=== PATIENT | female | born 1985 | race African-American/Black ===

== ENCOUNTER 2020-09-17 11:31 | Emergency (ER) | payer BC ==
[~2020-09-17] VITALS: Ht 160 cm; Wt 54.4 kg
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
[2020-09-17] MEDS ORDERED: IBUPROFEN 600 MG TABLET PO ONE (13:00)
[2020-09-17] MEDS ORDERED: IBUPROFEN 600 MG TABLET ONE (13:03)
[2020-09-17 13:44] VITALS: BP 113/71
== END 2020-09-17 13:45 | disposition home or self-care (01) ==
LOC: ER 11:34
DX: S20.219A Contusion of unspecified front wall of thorax, initial encounter (principal); S80.11XA Contusion of right lower leg, initial encounter; M25.561 Pain in right knee; V32.5XXA Driver of three-wheeled motor vehicle injured in collision with two- or three-wheeled motor vehicle in traffic accident, initial encounter; Y93.89 Activity, other specified; Y92.413 State road as the place of occurrence of the external cause; Y99.8 Other external cause status
CPT/HCPCS: 71045-TC; 73564-TC; 73590-TC

== ENCOUNTER 2023-09-17 16:13 | Emergency (ER) | payer BC, OTHER ==
[~2023-09-17] VITALS: Ht 160 cm; Wt 59.9 kg
[2023-09-17 17:12] LABS: BASOPHILS % (AUTO) 0.6 % (0.0-2.0); EOSINOPHILS # (AUTO) 0.1 K/uL (0.0-0.7); EOSINOPHILS % (AUTO) 0.9 % (0.0-6.0); HEMATOCRIT 41 % (33-45); HEMOGLOBIN 12.7 g/dL (11.5-14.8); LYMPHOCYTES # (AUTO) 2.3 K/uL (0.8-4.8); LYMPHOCYTES % (AUTO) 35.1 % (20.0-44.0); MEAN CORPUSCULAR HEMOGLOBIN 24 PG (26.0-33.0); MEAN CORPUSCULAR HGB CONC 31 g/dl (31.0-36.0); MEAN CORPUSCULAR VOLUME 77 fL (82-100); MONOCYTES # (AUTO) 0.3 K/uL (0.1-1.30); MONOCYTES % (AUTO) 4.7 % (2.0-12.0); NEUTROPHILS # (AUTO) 3.8 K/uL (1.8-8.9); NEUTROPHILS % (AUTO) 58.7 % (43.0-81.0); PLATELET COUNT (AUTO) 263 K/uL (150-450); RED BLOOD CELL COUNT(AUTO) 5.26 MIL/uL (4.0-5.2); RED CELL DISTRIBUTION WIDTH 19.1 % (11.5-15.0); WHITE BLOOD COUNT (AUTO) 6.4 K/uL (4.3-11.0)
[2023-09-17 17:37] LABS: APPEARANCE,URINE CLEAR (CLEAR); BILIRUBIN,URINE NEGATIVE (NEGATIVE); BLOOD, URINE NEGATIVE Ery/uL (NEGATIVE); COLOR,URINE YELLOW (YELLOW); KETONES,URINE NEGATIVE (NEGATIVE); LEUKOCYTE ESTERASE ,URINE NEGATIVE (NEGATIVE); NITRITE, URINE POSITIVE (NEGATIVE); PH,URINE 5.5 (5.0-8.0); PROTEIN,URINE NEGATIVE (NEGATIVE); UGLUCOSE NEGATIVE (NEGATIVE); UROBILINOGEN,URINE 0.2 EU/dL (0.2)
[2023-09-17 17:38] LABS: PREGNANCY TEST URINE QUAL NEGATIVE (NEGATIVE)
[2023-09-17 17:38] LABS: CALCIUM, SERUM 9.7 mg/dL (8.5-10.1); CARBON DIOXIDE 22 mmol/L (21-32); CHLORIDE 104 mmol/L (98-107); CREATININE 0.6 mg/dL (0.6-1.3); GLUCOSE 110 mg/dL (74-106); POTASSIUM 3.3 mmol/L (3.5-5.1); SODIUM SERUM 139 mmol/L (136-145); UREA NITROGEN, BLOOD 8 mg/dL (7-18)
[2023-09-17 17:41] LABS: INR 1.08 (0.91-1.10); PARTIAL THROMBOPLASTIN TIME 27.4 SEC (24.3-34.3); PROTHROMBIN TIME 11.4 SECS (9.2-11.1)
[2023-09-17 17:46] LABS: ALANINE AMINOTRANSFERASE 17 U/L (12-78); ALKALINE PHOSPHATASE 38 U/L (46-116); ASPARTATE AMINOTRANSFERASE 11 U/L (15-37); BILIRUBIN,DIRECT 0.1 mg/dL (0.0-0.2); BILIRUBIN,TOTAL 0.5 mg/dL (0.2-1.0); TOTAL PROTEIN, SERUM 9.4 g/dL (6.4-8.2)
[2023-09-17] MEDS ORDERED: IV NS 0.9% 1,000 ML BAG IV ONE (18:00)
[2023-09-17 18:03] LABS: ADD URINE CULTURE YES; BACTERIA,URINE 1+ /HPF (None Seen); MUCUS,URINE Moderate /LPF (None Seen); RBC,URINE 0-2 /HPF (0-2); WBC,URINE 0-2 /HPF (0-3)
[2023-09-17] MEDS ORDERED: CEPH500C2 PO (18:38)
[2023-09-17 18:40] LABS: PREGNANCY TEST URINE QUAL NEGATIVE (NEGATIVE)
[2023-09-17 19:37] VITALS: BP 110/75; TEMP 98.2; O2SAT 99
== END 2023-09-17 19:37 | disposition home or self-care (01) ==
LOC: ER 16:24
DX: N39.0 Urinary tract infection, site not specified (principal); R55 Syncope and collapse; Z79.899 Other long term (current) drug therapy
CPT/HCPCS: 99285; 96360; 71045; 93005; 85025; 80048; 87086; 80076; 81001; 36415; 84484; 85730; 86850; 84703 ×2; J7030

== ENCOUNTER 2023-12-06 07:16 | Emergency (ER) | payer OTHER ==
[~2023-12-06] VITALS: Ht 157.5 cm; Wt 59.4 kg
[~2023-12-06 07:16] MED LIST: CEPH500C2 PO
[2023-12-06 07:22] VITALS: TEMP 98.5
[2023-12-06 08:00] VITALS: BP 132/71; O2SAT 100
== END 2023-12-06 08:03 | disposition home or self-care (01) ==
LOC: ER 07:23
DX: L76.34 Postprocedural seroma of skin and subcutaneous tissue following other procedure (principal); Z98.890 Other specified postprocedural states

== ENCOUNTER 2024-02-23 13:32 | Emergency (ER) | payer OTHER ==
[~2024-02-23] VITALS: Ht 157.5 cm; Wt 59.9 kg
[2024-02-23] MEDS ORDERED: ACETAMINOPHEN ES 500 MG TABLET ONE (14:23)
[2024-02-23] MEDS ORDERED: FAMOTIDINE (20 MG) 20 MG TABLET ONE ×3 (14:23→14:26)
[2024-02-23] MEDS: FAMOTIDINE (20 MG) 20 MG TABLET PO ONE (14:31)
[2024-02-23] MEDS: ACETAMINOPHEN ES 500 MG TABLET PO ONE (14:33)
[2024-02-23 14:45] LABS: BASOPHILS # (AUTO) 0.1 K/uL (0.0-0.2); BASOPHILS % (AUTO) 0.8 % (0.0-2.0); EOSINOPHILS # (AUTO) 0.9 K/uL (0.0-0.7); HEMATOCRIT 30 % (33-45); HEMOGLOBIN 9.4 g/dL (11.5-14.8); LYMPHOCYTES # (AUTO) 2.3 K/uL (0.8-4.8); LYMPHOCYTES % (AUTO) 32.9 % (20.0-44.0); MEAN CORPUSCULAR HEMOGLOBIN 21 PG (26.0-33.0); MEAN CORPUSCULAR HGB CONC 31 g/dl (31.0-36.0); MEAN CORPUSCULAR VOLUME 68 fL (82-100); MONOCYTES # (AUTO) 0.2 K/uL (0.1-1.30); MONOCYTES % (AUTO) 3.5 % (2.0-12.0); NEUTROPHILS # (AUTO) 3.6 K/uL (1.8-8.9); NEUTROPHILS % (AUTO) 50.8 % (43.0-81.0); PLATELET COUNT (AUTO) 364 K/uL (150-450); RED BLOOD CELL COUNT(AUTO) 4.44 MIL/uL (4.0-5.2); RED CELL DISTRIBUTION WIDTH 21.8 % (11.5-15.0); WHITE BLOOD COUNT (AUTO) 7.1 K/uL (4.3-11.0)
[2024-02-23 15:03] LABS: CALCIUM, SERUM 9.1 mg/dL (8.5-10.1); CREATININE 0.5 mg/dL (0.6-1.3); POTASSIUM 3.4 mmol/L (3.5-5.1)
[2024-02-23 15:10] LABS: ALBUMIN 3.9 g/dL (3.4-5.0); BILIRUBIN,DIRECT 0.1 mg/dL (0.0-0.2); BILIRUBIN,TOTAL 0.2 mg/dL (0.2-1.0); TOTAL PROTEIN, SERUM 7.4 g/dL (6.4-8.2)
[2024-02-23] MEDS ORDERED: OMEP20CA15 PO (15:25)
[2024-02-23 15:35] VITALS: BP 118/66; TEMP 98; O2SAT 99
[2024-02-23 18:58] LABS: EOSINOPHILS % (MANUAL) 5 % (0-4); LYMPHOCYTES % (MANUAL) 38 % (16-48); MONOCYTES % (MANUAL) 2 % (0-11.0); NEUTROPHILS % (MANUAL) 55 (42-76)
[2024-02-23 19:01] LABS: ANISOCYTOSIS 2+; PLATELET ESTIMATE ADEQUATE
== END 2024-02-23 15:36 | disposition home or self-care (01) ==
LOC: ER 13:33
DX: R10.13 Epigastric pain (principal); R11.0 Nausea; R19.7 Diarrhea, unspecified
CPT/HCPCS: 36415; 80048-TC; 80076-TC; 83690-TC; 85025-TC